=== PATIENT | female | born 1940 | race Caucasian/White ===

== ENCOUNTER 2017-08-30 11:13 | Inpatient (IN) | payer MEDICARE ==
[2017-08-30] MEDS: IPRATROPIUM (NEB) 0.5 MG/2.5 ML AMP HHN (11:49)
[2017-08-30] MEDS: ALBUTEROL 0.083% (NEB) 2.5 MG/3 ML AMP HHN ×2 (11:49→20:49)
[2017-08-30] MEDS: predniSONE 20 MG TAB PO (11:56)
[2017-08-30 12:02] LABS: ADD MAN DIFF? NO
[2017-08-30 12:08] LABS: WHITE BLOOD COUNT 5.8 10^3/ul (4.8-10.8)
[2017-08-30 12:08] LABS: BASOPHILS % 0.5 % (0.0-2.0); EOSINOPHILS # 0.1 10^3/ul (0.0-0.5); EOSINOPHILS % 1.7 % (0.0-7.0); HEMATOCRIT 35.3 % (37.0-47.0); HEMOGLOBIN 11.5 g/dl (12.0-16.0); LYMPHOCYTES # 2.3 10^3/ul (0.8-2.9); LYMPHOCYTES % 39.1 % (15.0-51.0); MEAN CORPUSCULAR HEMOGLOBIN 27.2 pg (29.0-33.0); MEAN CORPUSCULAR HGB CONC 32.6 g/dl (32.0-37.0); MEAN CORPUSCULAR VOLUME 83.5 fl (82.0-101.0); MEAN PLATELET VOLUME 9.8 fl (7.4-10.4); MONOCYTE # 0.4 10^3/ul (0.3-0.9); NEUTROPHIL # 3.1 10^3/ul (1.6-7.5); NEUTROPHILS % 52.5 % (39.0-77.0); PLATELET COUNT 327 10^3/UL (140-415); RED BLOOD COUNT 4.23 10^6/ul (4.20-5.40); RED CELL DISTRIBUTION WIDTH 14.5 % (11.5-14.5)
[2017-08-30 12:24] LABS: ANION GAP 14 (8-16); BLOOD UREA NITROGEN 12 mg/dl (7-20); CALCIUM 9.5 mg/dl (8.4-10.2); CARBON DIOXIDE 26 mmol/L (21-31); CHLORIDE 108 mmol/L (97-110); GLUCOSE 117 mg/dl (70-220); POTASSIUM 4.6 mmol/L (3.5-5.1); SODIUM 143 mmol/L (135-144)
[2017-08-30 12:27] LABS: LACTIC ACID 1.7 mmol/L (0.5-2.0)
[2017-08-30] MEDS ORDERED: ACETAMINOPHEN 325 MG TAB PO (14:30)
[2017-08-30] MEDS ORDERED: ONDANSETRON 4 MG INJ IV (14:30)
[2017-08-30 18:16] LABS: LACTIC ACID 4.6 mmol/L (0.5-2.0)
[2017-08-30] MEDS ORDERED: PROMETHAZINE/CODEINE 5ML CUP PO (18:30)
[2017-08-30] MEDS ORDERED: ZOLPIDEM 5 MG TAB PO (18:30)
[2017-08-30] MEDS: LEVOFLOXACIN 500MG/D5W (PMX) 100 ML IVPB (18:34)
[2017-08-30] MEDS ORDERED: ALBUTEROL 0.083% (NEB) 2.5 MG/3 ML AMP HHN (19:00)
[2017-08-30] MEDS ORDERED: ASPIRIN (EC) 81 MG TAB PO (19:00)
[2017-08-30] MEDS: METHYLPREDNISOLONE 40 MG INJ IV (21:09)
[2017-08-30] MEDS: METOPROLOL (XL) 25 MG TAB PO (21:10)
[2017-08-30 21:29] LABS: LACTIC ACID 2.5 mmol/L (0.5-2.0)
[2017-08-31] MEDS: ALBUTEROL 0.083% (NEB) 2.5 MG/3 ML AMP HHN ×6 (00:47→20:34)
[2017-08-31] MEDS: PANTOPRAZOLE (EC) 40 MG TAB PO (05:38)
[2017-08-31 10:07] LABS: ADD MAN DIFF? NO
[2017-08-31] MEDS: METHYLPREDNISOLONE 40 MG INJ IV ×2 (10:08→20:29)
[2017-08-31] MEDS: ASPIRIN (EC) 81 MG TAB PO (10:09)
[2017-08-31] MEDS: METOPROLOL (XL) 25 MG TAB PO ×2 (10:09→20:30)
[2017-08-31 10:19] LABS: WHITE BLOOD COUNT 6.7 10^3/ul (4.8-10.8)
[2017-08-31 10:19] LABS: HEMATOCRIT 33.3 % (37.0-47.0); HEMOGLOBIN 10.6 g/dl (12.0-16.0); LYMPHOCYTES % 14.9 % (15.0-51.0); MEAN CORPUSCULAR HEMOGLOBIN 26.8 pg (29.0-33.0); MEAN CORPUSCULAR HGB CONC 31.8 g/dl (32.0-37.0); MEAN CORPUSCULAR VOLUME 84.3 fl (82.0-101.0); MEAN PLATELET VOLUME 9.1 fl (7.4-10.4); MONOCYTE # 0.4 10^3/ul (0.3-0.9); MONOCYTES % 5.6 % (0.0-11.0); NEUTROPHIL # 5.3 10^3/ul (1.6-7.5); PLATELET COUNT 308 10^3/UL (140-415); RED BLOOD COUNT 3.95 10^6/ul (4.20-5.40); RED CELL DISTRIBUTION WIDTH 14.3 % (11.5-14.5)
[2017-08-31 10:42] LABS: ANION GAP 16 (8-16); BLOOD UREA NITROGEN 12 mg/dl (7-20); CALCIUM 9.8 mg/dl (8.4-10.2); CARBON DIOXIDE 25 mmol/L (21-31); CHLORIDE 106 mmol/L (97-110); GLUCOSE 185 mg/dl (70-220); POTASSIUM 4.3 mmol/L (3.5-5.1); SODIUM 143 mmol/L (135-144)
[2017-08-31 10:44] LABS: LACTIC ACID 3.6 mmol/L (0.5-2.0)
[2017-08-31] MEDS: LEVOFLOXACIN 500MG/D5W (PMX) 100 ML IVPB (18:10)
[2017-08-31] MEDS: DOCUSATE SODIUM 100 MG CAP PO (22:09)
[2017-08-31] MEDS: ZOLPIDEM 5 MG TAB PO (22:10)
[2017-09-01] MEDS: ALBUTEROL 0.083% (NEB) 2.5 MG/3 ML AMP HHN ×6 (01:33→21:08)
[2017-09-01] MEDS: PANTOPRAZOLE (EC) 40 MG TAB PO (05:53)
[2017-09-01] MEDS: ASPIRIN (EC) 81 MG TAB PO (08:14)
[2017-09-01] MEDS: METHYLPREDNISOLONE 40 MG INJ IV ×2 (08:14→21:02)
[2017-09-01] MEDS: METOPROLOL (XL) 25 MG TAB PO ×2 (08:15→21:02)
[2017-09-01 10:21] LABS: ADD MAN DIFF? NO
[2017-09-01 10:24] LABS: WHITE BLOOD COUNT 11.1 10^3/ul (4.8-10.8)
[2017-09-01 10:24] LABS: BASOPHILS % 0.1 % (0.0-2.0); HEMATOCRIT 35.8 % (37.0-47.0); HEMOGLOBIN 11.3 g/dl (12.0-16.0); LYMPHOCYTES # 0.8 10^3/ul (0.8-2.9); MEAN CORPUSCULAR HGB CONC 31.6 g/dl (32.0-37.0); MEAN CORPUSCULAR VOLUME 85.6 fl (82.0-101.0); MEAN PLATELET VOLUME 9.1 fl (7.4-10.4); MONOCYTE # 0.4 10^3/ul (0.3-0.9); MONOCYTES % 3.8 % (0.0-11.0); NEUTROPHIL # 9.8 10^3/ul (1.6-7.5); NEUTROPHILS % 88.6 % (39.0-77.0); PLATELET COUNT 342 10^3/UL (140-415); RED BLOOD COUNT 4.18 10^6/ul (4.20-5.40); RED CELL DISTRIBUTION WIDTH 14.7 % (11.5-14.5)
[2017-09-01] MEDS: IODIXANOL LOCM 100 ML BTL (10:27)
[2017-09-01] MEDS: SOD CHLORIDE 0.9% 100 ML (10:27)
[2017-09-01] MEDS: MAGNESIUM HYDROXIDE 30ML CUP PO (10:50)
[2017-09-01 10:58] LABS: LACTIC ACID 2.8 mmol/L (0.5-2.0)
[2017-09-01] MEDS: LEVOFLOXACIN 500MG/D5W (PMX) 100 ML IVPB (17:54)
[2017-09-02] MEDS: ALBUTEROL 0.083% (NEB) 2.5 MG/3 ML AMP HHN ×4 (01:00→13:03)
[2017-09-02] MEDS: PANTOPRAZOLE (EC) 40 MG TAB PO (05:31)
[2017-09-02 06:32] LABS: ADD MAN DIFF? NO
[2017-09-02 06:40] LABS: HEMATOCRIT 32.7 % (37.0-47.0); HEMOGLOBIN 10.5 g/dl (12.0-16.0); LYMPHOCYTES # 1.2 10^3/ul (0.8-2.9); LYMPHOCYTES % 14.6 % (15.0-51.0); MEAN CORPUSCULAR HGB CONC 32.1 g/dl (32.0-37.0); MEAN CORPUSCULAR VOLUME 84.1 fl (82.0-101.0); MEAN PLATELET VOLUME 9.4 fl (7.4-10.4); MONOCYTE # 0.3 10^3/ul (0.3-0.9); MONOCYTES % 3.6 % (0.0-11.0); NEUTROPHIL # 6.9 10^3/ul (1.6-7.5); NEUTROPHILS % 81.6 % (39.0-77.0); PLATELET COUNT 322 10^3/UL (140-415); RED BLOOD COUNT 3.89 10^6/ul (4.20-5.40); RED CELL DISTRIBUTION WIDTH 14.8 % (11.5-14.5)
[2017-09-02 06:40] LABS: WHITE BLOOD COUNT 8.5 10^3/ul (4.8-10.8)
[2017-09-02 07:02] LABS: ANION GAP 13 (8-16); BLOOD UREA NITROGEN 19 mg/dl (7-20); CARBON DIOXIDE 26 mmol/L (21-31); CHLORIDE 106 mmol/L (97-110); CREATININE 0.66 mg/dl (0.44-1.00); GLUCOSE 126 mg/dl (70-220); POTASSIUM 4.3 mmol/L (3.5-5.1); SODIUM 141 mmol/L (135-144)
[2017-09-02] MEDS: ASPIRIN (EC) 81 MG TAB PO (09:31)
[2017-09-02] MEDS: METOPROLOL (XL) 25 MG TAB PO (09:31)
[2017-09-02] MEDS: METHYLPREDNISOLONE 40 MG INJ IV (09:31)
[2017-09-02] MEDS: LEVOFLOXACIN 500 MG TAB PO (17:27)
[2017-09-03 13:32] LABS: NIL 0.02 IU/mL; QUANTIFERON(R)-TB GOLD NEGATIVE (NEGATIVE); TB-NIL <0.00 IU/mL
== END 2017-09-02 19:25 | disposition home or self-care (01) | DRG 191 ==
LOC: E/R 11:13 → MS2 14:16
DX: J44.1 Chronic obstructive pulmonary disease with (acute) exacerbation (principal); R04.2 Hemoptysis; J47.0 Bronchiectasis with acute lower respiratory infection; M79.7 Fibromyalgia; D64.9 Anemia, unspecified; J20.9 Acute bronchitis, unspecified; J44.0 Chronic obstructive pulmonary disease with (acute) lower respiratory infection
CPT/HCPCS: 36415; 71045; 71046; 71260; 80048; 83605; 85025; 86480; 86606; 87040; 94640; 94664; 99285-25

== ENCOUNTER 2018-06-10 11:43 | Emergency (ER) | payer MEDICARE ==
[2018-06-10] MEDS: SOD CHLORIDE 0.9% 1,000 ML IV (12:32)
[2018-06-10] MEDS: ONDANSETRON 4 MG INJ IV ×2 (12:32→15:30)
[2018-06-10] MEDS: morphine 4 MG/ML VIAL IV (12:33)
[2018-06-10 12:34] LABS: ADD MAN DIFF? NO
[2018-06-10 12:45] LABS: WHITE BLOOD COUNT 6.4 10^3/ul (4.8-10.8)
[2018-06-10 12:45] LABS: BASOPHILS % 0.5 % (0.0-2.0); EOSINOPHILS # 0.3 10^3/ul (0.0-0.5); HEMOGLOBIN 11.9 g/dl (12.0-16.0); LYMPHOCYTES # 2.7 10^3/ul (0.8-2.9); LYMPHOCYTES % 41.7 % (15.0-51.0); MEAN CORPUSCULAR HEMOGLOBIN 26.7 pg (29.0-33.0); MEAN CORPUSCULAR HGB CONC 31.3 g/dl (32.0-37.0); MEAN CORPUSCULAR VOLUME 85.2 fl (82.0-101.0); MEAN PLATELET VOLUME 9.3 fl (7.4-10.4); MONOCYTE # 0.4 10^3/ul (0.3-0.9); MONOCYTES % 6.9 % (0.0-11.0); NEUTROPHIL # 2.9 10^3/ul (1.6-7.5); NEUTROPHILS % 45.7 % (39.0-77.0); PLATELET COUNT 315 10^3/UL (140-415); RED BLOOD COUNT 4.46 10^6/ul (4.20-5.40); RED CELL DISTRIBUTION WIDTH 14.9 % (11.5-14.5)
[2018-06-10 12:55] LABS: ALANINE AMINOTRANSFERASE 7 IU/L (13-69); ALBUMIN 4.5 g/dl (3.3-4.9); ALBUMIN/GLOBULIN RATIO 1.21; ALKALINE PHOSPHATASE 76 IU/L (42-121); AMYLASE 109 U/L (11-123); ANION GAP 8 (5-13); ASPARTATE AMINO TRANSFERASE 31 IU/L (15-46); BLOOD UREA NITROGEN 13 mg/dl (7-20); CARBON DIOXIDE 26 mmol/L (21-31); CHLORIDE 106 mmol/L (97-110); CREATININE 0.59 mg/dl (0.44-1.00); GLUCOSE 79 mg/dl (70-220); LIPASE 132 U/L (23-300); POTASSIUM 4.3 mmol/L (3.5-5.1); SODIUM 140 mmol/L (135-144); TOTAL PROTEIN 8.2 g/dl (6.1-8.1)
[2018-06-10 12:56] LABS: CALCIUM 9.9 mg/dl (8.4-10.2)
[2018-06-10 13:06] LABS: TROPONIN-I < 0.012 ng/ml (0.000-0.120)
[2018-06-10] MEDS: SOD CHLORIDE 0.9% 100 ML (13:09)
[2018-06-10] MEDS: IOHEXOL 300MG/ML 150 ML BTL (13:09)
[2018-06-10] MEDS: METHYLPREDNISOLONE 125 MG INJ IV (15:29)
[2018-06-10] MEDS: IPRATROPIUM (NEB) 0.5 MG/2.5 ML AMP NEB (15:29)
[2018-06-10] MEDS: KETOROLAC 15 MG INJ IV (15:30)
[2018-06-10] MEDS: HYDROmorphONE 1 MG/ML SYG IV (15:30)
[2018-06-10] MEDS: ALBUTEROL 0.083% (NEB) 2.5 MG/3 ML AMP NEB (15:30)
== END 2018-06-10 17:46 | disposition home or self-care (01) ==
LOC: E/R 11:43
DX: J40 Bronchitis, not specified as acute or chronic (principal); R40.2142 Coma scale, eyes open, spontaneous, at arrival to emergency department; R40.2252 Coma scale, best verbal response, oriented, at arrival to emergency department; R40.2362 Coma scale, best motor response, obeys commands, at arrival to emergency department; Z79.82 Long term (current) use of aspirin
CPT/HCPCS: 36415; 71045; 74177; 80053; 82150; 83690; 84484; 85025; 93005; 94664; 96374; 96375; 99285-25